=== PATIENT | female | born 1940 | race Two or more races ===

== ENCOUNTER 2016-06-19 14:44 | Emergency (ER) | payer OTHER, MEDICAID ==
[2016-06-19 15:21] LABS: % IMMATURE GRANULYOCYTES 0.4 % (0.0-1.1); ABSOLUTE IMMATURE GRANULOCYTES 0.03 10^3/uL (0.00-0.10); ADD DIFF? NO; ADD MORPH? NO; ADD SCAN? NO; ATYPICAL LYMPHOCYTE FLAG 10 (0-99); FRAGMENT RBC FLAG 0 (0-99); HEMATOCRIT 42.2 % (38.0-47.0); HEMOGLOBIN 13.7 g/dL (12.6-16.3); LEFT SHIFT FLG 0 (0-99); LIPEMIA HEMOLYSIS FLAG 80 (0-99); MEAN CELL HEMOGLOBIN 26.8 pg (27.9-34.1); MEAN CELL HEMOGLOBIN CONCENTR. 32.5 g/dL (32.4-36.7); MEAN CELL VOLUME 82.4 fL (81.5-99.8); MEAN PLATELET VOLUME 10.2 fL (8.7-11.7); PLATELET CLUMPS FLAG 10 (0-99); PLATELET COUNT 399 10^3/uL (150-400); RED BLOOD CELL COUNT 5.12 10^6/uL (4.18-5.33); RED CELL DISTRIBUTION WIDTH 14.8 % (11.5-15.2)
--- NOTE | 2016-06-19 15:21 | EDPHY ---
H & P Time Seen by Provider: 06/19/16 15:18 HPI/ROS: CHIEF COMPLAINT: Dizziness, headache. HISTORY OF PRESENT ILLNESS: This is a 76-year-old female presenting with room- spinning dizziness for 2 days. The dizziness is worsened by lying flat and moving her head. It is intermittent in nature. She does not have it at the moment. She admits associated diarrhea starting today and intermittent 4/10 headache. She has similar headaches everyday for years. She denies nausea or vomiting. She denies vision changes, speaking difficulties, numbness, weakness, or other complaints. She has no history of similar symptoms. History obtained via Maori russian language professor at bedside. REVIEW OF SYSTEMS: A complete 10-point review of systems was performed and is negative except for those items mentioned in the HPI. Past Medical/Surgical History: Hysterectomy. Social History: Nonsmoker. Smoking Status: Never smoked Physical Exam: General Appearance: Alert, no distress Eyes: Nystagmus with leftward gaze. Pupils equal and round, no conjunctival pallor or injection ENT, Mouth: Mucous membranes moist Neck: Normal inspection Respiratory: Lungs are clear to auscultation Cardiovascular: Regular rate and rhythm Gastrointestinal: Abdomen is soft and non- tender Neurological: Alert, oriented x3, cranial nerves II through XII intact, motor 5 /5, sensory intact to light touch, no pronator drift. Skin: Warm and dry, no rash Extremities: Nontender, no pedal edema Psychiatric: Mood and affect normal Constitutional: Initial Vital Signs Temperature (C) 36.4 C 06/19/16 14:46 Heart Rate 86 06/19/16 14:46 Respiratory Rate 16 06/19/16 14:46 Blood Pressure 175/84 H 06/19/16 14:46 O2 Sat (%) 91 L 06/19/16 14:46 O2 Delivery Mode Room Air Allergies/Adverse Reactions: No Known Allergies Allergy (Unverified 08/10/15 17:12) Home Medications: Medication Instructions Recorded Motrin 09/30/10 Lisinopril [Zestril 20 mg (*)] 01/21/13 Lovastatin 20 mg PO 01/21/13 Hydrocodone/APAP 5/325 [[place] 1 - 2 tab PO Q4 PRN #14 tab 08/10/15 5/325 (RX)] Cephalexin [Keflex (*)] 500 mg PO QID #20 cap 06/19/16 Meclizine HCl [Meclizine HCl 25 mg 25 mg PO TID PRN #15 tab 06/19/16 (RX,OTC)] Medical Decision Making - Diagnostics EKG Interpretation: The 12 lead EKG was interpreted by myself. See hard copy and/or "tracemaster" electronic copy for interpretation. Sinus rhythm rate 80, inferior T wave flattening. ED Course/Re-evaluation: This pt presents with vertigo, without concerning signes/sx of central etiology of sx. Chronic daily PEREZ's, without rcent change. I do not feel that neuroimaging is indicated. An IV was established and labs ordered. EKG ordered. 25mg PO Meclizine administered for dizziness. The patient's urine was positive for infection. I ordered a urine culture and she will be placed on a 5 day course of Keflex. 1631: Reassessed patient. She is feeling better and her vertigo has resolved. I communicated the results of her laboratory studies to her. She is comfortable with the plan and understands to take Keflex and Meclizine. I answered all of her questions. She was given return precautions prior to leaving. Differential Diagnosis: includes though not limited to ICH, CVA, Meniere's disease, tumor. - Data Points Laboratory Results: Laboratory Results 06/19/16 15:15 06/19/16 15:15 Microbiology Results: MICROBIOLOGY 06/19/16 15:30 Urine,Clean Catch Urine Culture - Preliminary Strep Agalactiae Group B Medications Given: Discontinued Medications Meclizine HCl (Meclizine Hcl) 25 mg PO EDNOW ONE Stop: 06/19/16 15:36 Last Admin: 06/19/16 15:55 Dose: 25 mg Departure - Departure Disposition: Home, Routine, Self-Care Clinical Impression: Benign positional vertigo Qualifiers: Laterality: left Qualifier Code: (H81.12) Benign paroxysmal vertigo, left ear Urinary tract infection Qualifiers: Urinary tract infection type: acute cystitis Hematuria presence: without hematuria Qualifier Code: (N30.00) Acute cystitis without hematuria Condition: Good Instructions: Benign Paroxysmal Positional Vertigo (ED), Urinary Tract Infection in Women (DC) Additional Instructions: Take Meclizine as prescribed when needed for dizziness. Take Keflex as prescribed to treat your urinary tract infection. Follow up with your primary care provider in the next 2-3 days if symptoms are not improving. Return to the emergency department for worsening dizziness, vomiting, headache, numbness or weakness on one side of your body, or other serious worsening of condition. - Liscomb el Meclizine a natalee se le perez recetado cuando lo necesite para los mareos. - Liscomb Kaflex a natalee lo se le perez recetado para tratar ramos infeccion del tracto urinario. - Anant genesis clayton de seguimiento con ramos doctor de cabecera en 2-3 gordon si no mejora. - Regrese a la lisa de emergencia si tiene mareos, vomito, dolor de marquez, dormideo o debilidad mucho peor en el lado de ramos cuerpo, o si presenta genesis peor condicion. Referrals: Samina Harden, PAC [Primary Care Provider] - As per Instructions Prescriptions: Cephalexin [Keflex (*)] 500 mg PO QID #20 cap Meclizine HCl [Meclizine HCl 25 mg (RX,OTC)] 25 mg PO TID PRN #15 tab PRN Reason: Dizziness Print Language: Maori Report Scribed for: Zahira Pereira Report Scribed by: Brenton Lieberman Date of Report: 06/19/16 Time of Report: 15:20 Physician Review and Approval Statement: 06/19/16 15:20 Portions of this note were transcribed by a front office medical assistant. I personally performed a history, physical exam, medical decision making, and confirmed accuracy of information the transcribed note.
--- NOTE | 2016-06-19 15:24 | CPEKG ---
Heart Rate: 80 RR Interval: 750 P-R Interval: 160 QRSD Interval: 78 QT Interval: 388 QTC Interval: 448 P [place]: 45 QRS [place]: 70 T Wave [place]: -10 EKG Severity - BORDERLINE ECG - EKG Impression: SINUS RHYTHM EKG Impression: BORDERLINE T ABNORMALITIES, INFERIOR LEADS Electronically Signed By: Zahira Pereira 19-Jun-2016 23:32:42
[2016-06-19] MEDS ORDERED: MECLIZINE HCL 25 MG TAB PO ONE (15:35)
[2016-06-19 15:38] LABS: ANION GAP 15 mEq/L (8-16); CALCIUM 9.4 mg/dL (8.5-10.4); CARBON DIOXIDE 21 mEq/l (22-31); CHLORIDE 105 mEq/L (97-110); CREATININE 0.6 mg/dL (0.6-1.0); GLOMERULAR FILTRATION RATE > 60; GLUCOSE 116 mg/dL (70-100); POTASSIUM 4.3 mEq/L (3.5-5.2); SODIUM 141 mEq/L (134-144)
[2016-06-19 16:02] LABS: COLOR YELLOW; LEUKOCYTE ESTERASE,URINE TRACE (NEGATIVE); NITRITE,URINE NEGATIVE (NEGATIVE)
[2016-06-19 16:04] LABS: MUCUS TRACE /lpf (NONE-1+)
[2016-06-19 16:36] VITALS: BP 152/92; PULSE 81; RESP 14; TEMP 98.2; O2SAT 92
== END 2016-06-19 16:55 | disposition home or self-care (01) ==
DX: H81.12 Benign paroxysmal vertigo, left ear (principal); N30.00 Acute cystitis without hematuria; B96.89 Other specified bacterial agents as the cause of diseases classified elsewhere

== ENCOUNTER 2017-02-08 09:58 | Emergency (ER) | payer OTHER, MEDICAID ==
--- NOTE | 2017-02-08 10:06 | EDPHY ---
H & P HPI/ROS: CHIEF COMPLAINT: emotional upset, unknown c/o HISTORY OF PRESENT ILLNESS: This patient is a South Korean-speaking 77 year old female arriving via EMS from [facility] in [place] for an unknown complaint. No liquefied natural gas operator was present. Per EMS report, she was seated in a chair in the loss prevention department holding her chest and throat when they arrived. Vitals in transport were BP 207 /114, 104 HR, 238 BGL. She does have history of diabetes and hypertension. She states she was recently admitted to a hospital in [place] for management of a medication allergy. Currently, she appears tearful. She states her mouth feels very dry. She endorses feeling depressed. She denies pain, shortness of breath, nausea, vomiting, stomach pain, or other associated symptoms. HPI obtained primarily through EMS report and liquefied natural gas operator at bedside. REVIEW OF SYSTEMS: A 10 point review of systems was performed and is negative with the exception of the elements mentioned in the history of present illness. - Medical/Surgical History PMH: Diabetes mellitus, hypertension. - Social History Additional Social History: South Korean-speaking. Lives in [place]. Family in [place]. Retired. - Physical Exam Exam: General Appearance: Tearful. Alert, no distress Eyes: Pupils equal and round, no conjunctival pallor or injection ENT, Mouth: Mucous membranes moist Neck: Normal inspection Respiratory: Lungs are clear to auscultation Cardiovascular: Regular rate and rhythm Gastrointestinal: Abdomen is soft and non- tender Neurological: A&O, nonfocal, normal gait Skin: Warm and dry, no rash Extremities: Nontender, no pedal edema Psychiatric: Mood and affect normal Constitutional: Initial Vital Signs Temperature (C) 36.7 C 02/08/17 10:09 Heart Rate 102 H 02/08/17 10:09 Respiratory Rate 18 02/08/17 10:09 Blood Pressure 155/113 H 02/08/17 10:09 O2 Sat (%) 95 02/08/17 10:09 O2 Delivery Mode Room Air Allergies/Adverse Reactions: No Known Allergies Allergy (Unverified 08/10/15 17:12) Home Medications: Medication Instructions Recorded Motrin 09/30/10 Lisinopril [Zestril 20 mg (*)] 01/21/13 Lovastatin 20 mg PO 01/21/13 Hydrocodone/APAP 5/325 [[place] 1 - 2 tab PO Q4 PRN #14 tab 08/10/15 5/325 (RX)] Cephalexin [Keflex (*)] 500 mg PO QID #20 cap 06/19/16 Meclizine HCl [Meclizine HCl 25 mg 25 mg PO TID PRN #15 tab 06/19/16 (RX,OTC)] Medical Decision Making - Diagnostics EKG Interpretation: EKG: NSR, normal axis/intervals, PAC's, diffuse T wave changes ED Course/Re-evaluation: 76 year old female presents for evaluation after associates at [facility] called EMS. She has no current specific complaints, but is tearful and states she does not feel well, but that she does not want to be here in the emergency department. Plan for EKG, labs including CBC, BMP. On further discussed, the liquefied natural gas operator discovered that the patient had left [facility] with her cart of groceries without paying for an unknown reason. Loss prevention associates at [facility] detained her and would not let her pay or leave. She became very upset and distressed. She is very concerned that staff and [facility] will not forgive her. She also states that when she was treated in [place] last Monday for her allergic reaction, she was admitted to the ICU. She has been feeling quite stressed and not well since that time. She states "I don't know why I went in that store when I'm not feeling well". Labs are unremarkable. The patient is comfortable being discharged home at this time. I offered case management should she be interested. Follow up and return precautions discussed. The patient is comfortable with this plan. - Data Points Laboratory Results: Laboratory Results 02/08/17 09:59 02/08/17 09:59 02/08/17 02/08/17 02/08/17 10:06 09:59 09:59 WBC 8.93 10^3/uL 10^3/uL (3.80-9.50) RBC 5.07 10^6/uL 10^6/uL (4.18-5.33) Hgb 13.1 g/dL g/dL (12.6-16.3) Hct 41.1 % % (38.0-47.0) MCV 81.1 fL L fL (81.5-99.8) MCH 25.8 pg L pg (27.9-34.1) MCHC 31.9 g/dL L g/dL (32.4-36.7) RDW 16.3 % H % (11.5-15.2) Plt Count 459 10^3/uL H 10^3/uL (150-400) MPV 10.8 fL fL (8.7-11.7) Neut % (Auto) 55.4 % % (39.3-74.2) Lymph % (Auto) 32.7 % % (15.0-45.0) [place] % (Auto) 8.8 % % (4.5-13.0) Eos % (Auto) 1.7 % % (0.6-7.6) Baso % (Auto) 0.7 % % (0.3-1.7) Nucleat RBC Rel Count 0.0 % % (0.0-0.2) Absolute Neuts (auto) 4.95 10^3/uL 10^3/uL (1.70-6.50) Absolute Lymphs (auto) 2.92 10^3/uL 10^3/uL (1.00-3.00) Absolute Monos (auto) 0.79 10^3/uL 10^3/uL (0.30-0.80) Absolute Eos (auto) 0.15 10^3/uL 10^3/uL (0.03-0.40) Absolute Basos (auto) 0.06 10^3/uL 10^3/uL (0.02-0.10) Absolute Nucleated RBC 0.00 10^3/uL 10^3/uL (0-0.01) Immature Gran % 0.7 % % (0.0-1.1) Immature Gran # 0.06 10^3/uL 10^3/uL (0.00-0.10) Sodium 135 mEq/L mEq/L (134-144) Potassium 4.5 mEq/L mEq/L (3.5-5.2) Chloride 100 mEq/L mEq/L (97-110) Carbon Dioxide 22 mEq/l mEq/l (22-31) Anion Gap 13 mEq/L mEq/L (8-16) BUN 13 mg/dL mg/dL (7-23) Creatinine 0.6 mg/dL mg/dL (0.6-1.0) Estimated GFR > 60 Glucose 282 mg/dL H mg/dL (70-100) POC Glucose 247 mg/dL H mg/dL (70-100) Calcium 9.6 mg/dL mg/dL (8.5-10.4) Point of Care Test Results: 02/08/17 10:06 POC Glucose 247 H Departure - Departure Disposition: Home, Routine, Self-Care Clinical Impression: Situational depression, Situational anxiety Condition: Good Instructions: Depression (ED), Anxiety (ED) Additional Instructions: Follow up with your primary care provider for continued concerns. Your primary care provider may also be able to help you with finding resources to help reduce your stress. Gissell de seguimiento con ramos Dr. de cuidado primario para preocupaciones continuas. Tu proveador de cuidado primario alomejor puede ayudarle en conseguir recursos para reducir tu estres. You may also return to the emergency department for any worsening of condition or further concerns. Tambien puedes regresar a la lisa de Emergencia para cualquier empeoramiento de ramos condicion u mas preocupaciones. Referrals: [facility],. [Clinic] - As per Instructions Yamilka Head MD [Medical Doctor] - As per Instructions Print Language: South Korean Report Scribed for: Zahira Pereira Report Scribed by: Isabela Pardo Date of Report: 02/08/17 Time of Report: 10:21 Physician Review and Approval Statement: 02/08/17 10:21 Portions of this note were transcribed by a medical accounts receivable specialist. I personally performed a history, physical exam, medical decision making, and confirmed accuracy of information the transcribed note.
[2017-02-08 10:10] VITALS: RESP 18; O2SAT 95
[2017-02-08 10:13] LABS: % IMMATURE GRANULYOCYTES 0.7 % (0.0-1.1); ABSOLUTE IMMATURE GRANULOCYTES 0.06 10^3/uL (0.00-0.10); ADD DIFF? NO; ADD MORPH? NO; ADD SCAN? NO; ATYPICAL LYMPHOCYTE FLAG 10 (0-99); FRAGMENT RBC FLAG 20 (0-99); HEMATOCRIT 41.1 % (38.0-47.0); HEMOGLOBIN 13.1 g/dL (12.6-16.3); LEFT SHIFT FLG 0 (0-99); LIPEMIA HEMOLYSIS FLAG 80 (0-99); MEAN CELL HEMOGLOBIN 25.8 pg (27.9-34.1); MEAN CELL HEMOGLOBIN CONCENTR. 31.9 g/dL (32.4-36.7); MEAN CELL VOLUME 81.1 fL (81.5-99.8); MEAN PLATELET VOLUME 10.8 fL (8.7-11.7); PLATELET CLUMPS FLAG 0 (0-99); PLATELET COUNT 459 10^3/uL (150-400); RED BLOOD CELL COUNT 5.07 10^6/uL (4.18-5.33); RED CELL DISTRIBUTION WIDTH 16.3 % (11.5-15.2)
--- NOTE | 2017-02-08 10:16 | CPEKG ---
Heart Rate: 92 RR Interval: 652 P-R Interval: 156 QRSD Interval: 78 QT Interval: 360 QTC Interval: 446 P [place]: 49 QRS [place]: 63 T Wave [place]: -21 EKG Severity - ABNORMAL ECG - EKG Impression: SINUS RHYTHM EKG Impression: MULTIPLE ATRIAL PREMATURE COMPLEXES EKG Impression: BORDERLINE T ABNORMALITIES, DIFFUSE LEADS Electronically Signed By: Zahira Pereira 08-Feb-2017 14:05:55
[2017-02-08 10:31] LABS: CALCIUM 9.6 mg/dL (8.5-10.4); CREATININE 0.6 mg/dL (0.6-1.0); GLOMERULAR FILTRATION RATE > 60; GLUCOSE 282 mg/dL (70-100)
[2017-02-08 10:44] LABS: ANION GAP 13 mEq/L (8-16); CARBON DIOXIDE 22 mEq/l (22-31); CHLORIDE 100 mEq/L (97-110); POTASSIUM 4.5 mEq/L (3.5-5.2); SODIUM 135 mEq/L (134-144)
[2017-02-08 11:09] VITALS: BP 151/81; PULSE 98; TEMP 97.9
== END 2017-02-08 11:49 | disposition home or self-care (01) ==
LOC: EDUNIT#
DX: F43.21 Adjustment disorder with depressed mood (principal); F41.9 Anxiety disorder, unspecified; E11.9 Type 2 diabetes mellitus without complications; I10 Essential (primary) hypertension

== ENCOUNTER → 2017-06-12 | Outpatient (CLI) | payer OTHER, MEDICAID | LOC: FIMAGING 12:21 | PROVIDERS: ATTEND Physician Assistant | DX: Z13.820 Encounter for screening for osteoporosis (principal); M81.0 Age-related osteoporosis without current pathological fracture; M85.80 Other specified disorders of bone density and structure, unspecified site; Z78.0 Asymptomatic menopausal state ==